=== PATIENT | female | born 1970 | race Two or more races ===

== ENCOUNTER → 2017-07-23 | Outpatient (CLI) | payer MEDICAID | LOC: FIMAGING 09:55 | PROVIDERS: ATTEND Physician Assistant | DX: R16.0 Hepatomegaly, not elsewhere classified (principal); K76.0 Fatty (change of) liver, not elsewhere classified; K76.89 Other specified diseases of liver ==

== ENCOUNTER → 2017-08-14 | Outpatient (CLI) | payer MEDICAID ==
[~2017-08-14] MED LIST: IOPAMIDOL (ISOVUE-300) 100 ML BTL ONE
== END ==
LOC: FIMAGING 15:56
PROVIDERS: ATTEND Physician Assistant
DX: K76.9 Liver disease, unspecified (principal); R94.5 Abnormal results of liver function studies
CPT/HCPCS: Q9967

== ENCOUNTER 2018-01-21 10:54 | Day surgery (SDC) | payer MEDICAID ==
[2018-01-21] MEDS ORDERED: LR 1,000 ML IV ONE (11:13)
[2018-01-21] MEDS ORDERED: LIDOCAINE 1% 2 ML INJ ID PRN (11:13)
--- NOTE | 2018-01-21 12:12 | PDGENHP ---
History & Physical Chief Complaint: dysphagia, diarreha, brbpr History of Present Illness: gerd and dysphagia. IBS diarrhea Pertinent Past, Social, Family History: tobacco -= none. alcohol = none. FHx = sister with cervical cacner. PMH = htn Relevant Physical Exam: a+ox3. CTA. S1S2, RRR. +BS, soft nt Cardiorespiratory Assessment: class 2
--- NOTE | 2018-01-21 12:12 | PDPROPOC ---
Sedation Plan of Care Sedation Plan of Care: vital signs stable, mental status noted, patient educated of risks, benefits, alternatives, patient can tolerate sedation ASA Classification: ASA 2 Planned drugs: fentanyl, midazolam Mallampati Score: Class 2 Mallampati Reference Image: Patient passed 3-3-2 rule?: Yes
[2018-01-21] MEDS ORDERED: MIDAZOLAM 2 MG/2 ML VIAL ONE ×2 (12:19→12:43)
[2018-01-21] MEDS ORDERED: fentaNYL 100 MCG/2 ML INJ ONE (12:20)
--- NOTE | 2018-01-21 13:12 | GIREPORT ---
[facility] Surgical Services - Endoscopy Department Patient Name: Fiona Blue Procedure Date: 01/21/2018 12:16 PM Patient Type: Outpatient Attending MD/ ER Physician: Rubens Romero MD Procedure: Upper GI endoscopy Indications: Dysphagia, Globus sensation Providers: Rubens Romero MD Referring MD: Mandeep Ann MD Medicines: Fentanyl 100 micrograms IV, Midazolam 5 mg IV Complications: No immediate complications. Estimated blood loss: Minimal. Description of Procedure: After obtaining informed consent, the endoscope was passed under direct vision. Throughout the procedure, the patient's blood pressure, pulse, and oxygen saturations were monitored continuously. The Endoscope was intro duced through the mouth, and advanced to the third part of duodenum. The uppe r GI endoscopy was accomplished without difficulty. The patient tolerated th e procedure well. Findings: The upper third of the esophagus was normal. Biopsies were obtained fro m the proximal and distal esophagus with cold forceps for histology of suspec demetris eosinophilic esophagitis. LA Grade B (one or more mucosal breaks greater than 5 mm, not extending between the tops of two mucosal folds) esophagitis with no bleeding was found in the lower third of the esophagus. Biopsies were taken with a c old forceps for histology. Estimated blood loss was minimal. A small hiatal hernia was present. Moderate inflammation characterized by congestion (edema), erosions and erythema was found in the gastric antrum. Biopsies were taken with a co ld forceps for histology. Estimated blood loss was minimal. The examined duodenum was normal. Biopsies for histology were taken wit h a cold forceps for evaluation of celiac disease. Estimated blood loss was minimal. The exam was otherwise without abnormality. Estimated Blood Loss: Estimated blood loss was minimal. Post Op Diagnosis: - Normal upper third of esophagus. Biopsied. - LA Grade B reflux esophagitis. Biopsied. - Small hiatal hernia. - Gastritis. Biopsied. - Normal examined duodenum. Biopsied. - The examination was otherwise normal. Recommendation: - Await pathology results. - My office will call with the pathology result with 5-7 days. If you h ave not heard from my office by 01-30, do not assume the pathology is deysi l, please call [phone] to get the pathology results. - Follow an antireflux regimen. - Use Protonix (pantoprazole or equivalent PPI) 40 mg PO daily. Take 30-60minutes before breakfast - Use Zantac (ranitidine) 300 mg PO at bedtime. - Perform a colonoscopy today. - Return to GI clinic in 5 weeks. - Return to primary care physician as previously scheduled. - Thank you for allowing me to help in your patient's care. Do not hesi frances to call with any questions. Attending Participation: I personally performed the entire procedure. Heather Cintron M.D Rubens Romero MD 01/21/2018 1:12:21 PM This report has been signed electronicallyMatthew MD Heather Number of Addenda: 0 Note Initiated On: 01/21/2018 12:16 PM [email or web address]
--- NOTE | 2018-01-21 13:12 | GIREPORT ---
[facility], [facility] Surgical Services - Endoscopy Department Patient Name: Fiona Blue Procedure Date: 01/21/2018 12:41 PM Patient Type: Outpatient Attending MD/ ER Physician: Rubens Romero MD Procedure: Colonoscopy Indications: Clinically significant diarrhea of unexplained origin, Hematochezia Providers: Rubens Romero MD Referring MD: Mandeep Ann MD Medicines: Fentanyl 125 micrograms IV, Midazolam 8 mg IV, (medications documented represent total dosages for multiple procedures) Complications: No immediate complications. Estimated blood loss: Minimal. Description of Procedure: After obtaining informed consent, the scope was passed under direct vis ion. Throughout the procedure, the patient's blood pressure, pulse, and oxyg en saturations were monitored continuously. The Colonoscope with irrigatio n channel was introduced through the anus and advanced to the terminal il eum, with identification of the appendiceal orifice and IC valve. The colono scopy was performed without difficulty. The patient tolerated the procedure w ell. The quality of the bowel preparation was good. Findings: The digital rectal exam findings include hemorrhoids. The terminal ileum contained a few localized non-bleeding erosions. Bio psies were taken with a cold forceps for histology. Estimated blood loss was minimal. The colon (entire examined portion) appeared normal. Biopsies for histo logy were taken with a cold forceps from the cecum, ascending colon, transve rse colon, descending colon and sigmoid colon for evaluation of microscopic colitis. Estimated blood loss was minimal. Internal hemorrhoids were found during retroflexion. The exam was otherwise without abnormality. Estimated Blood Loss: Estimated blood loss was minimal. Post Op Diagnosis: - Hemorrhoids found on digital rectal exam. - A few erosions in the terminal ileum. Biopsied. - The entire examined colon is normal. Biopsied. - Internal hemorrhoids. - The examination was otherwise normal. Recommendation: - Await pathology results. - My office will call with the pathology result with 5-7 days. If you h ave not heard from my office by 14, do not assume the pathology is deysi l, please call [phone] to get the pathology results. - If pathology reveals microscopic colitis, treat with budesonide 9mg p er day for 8 weeks, then 6 mg per day for one week, then 3 mg per day for one week, then stop. - Repeat colonoscopy in 10 years for screening purposes. - Patient has a contact number available for emergencies. The signs and symptoms of potential delayed complications were discussed with the pat ient. Return to normal activities tomorrow. Written discharge instructions we re provided to the patient. - Continue present medications. - Return to GI clinic in 5 weeks. - Return to primary care physician as previously scheduled. - Thank you for allowing me to help in your patient's care. Do not hesi frances to call with any questions. - See EGD for other recommendations Attending Participation: I personally performed the entire procedure. Heather Cintron M.D Rubens Romero MD 01/21/2018 1:11:39 PM This report has been signed electronicallyMattrandyw MD Heather Number of Addenda: 0 Note Initiated On: 01/21/2018 12:41 PM Total Procedure Duration Time 0 hours 18 minutes 26 seconds [email or web address]
[2018-01-21] MEDS ORDERED: IBUPROFEN 200 MG TAB PO ONE ×2 (13:49→14:15)
[2018-01-21 14:28] VITALS: BP 134/77
== END 2018-01-21 14:34 | disposition home or self-care (01) ==
LOC: FSGY 10:54
PROVIDERS: ATTEND Internal Medicine Gastroenterology
DX: R13.10 Dysphagia, unspecified (principal); K92.1 Melena; K20.9 Esophagitis, unspecified; K29.70 Gastritis, unspecified, without bleeding; R19.7 Diarrhea, unspecified; K64.8 Other hemorrhoids; K21.9 Gastro-esophageal reflux disease without esophagitis; K44.9 Diaphragmatic hernia without obstruction or gangrene; Z80.49 Family history of malignant neoplasm of other genital organs
CPT/HCPCS: J2250; J3010

== ENCOUNTER → 2018-02-11 | Outpatient (CLI) | payer MEDICAID | LOC: FIMAGING 08:03 | PROVIDERS: ATTEND Physician Assistant | DX: R10.11 Right upper quadrant pain (principal) | CPT/HCPCS: 78227; A9537 ==

== ENCOUNTER → 2018-04-02 | Outpatient (CLI) | payer MEDICAID ==
[~2018-04-02] MED LIST changes: +IOHEXOL 300 mgI/ML (OMNIPAQUE) 150 ML BTL IV ONE; -IOPAMIDOL (ISOVUE-300) 100 ML BTL ONE
== END ==
LOC: FIMAGING 14:21
PROVIDERS: ATTEND Physician Assistant
DX: K76.0 Fatty (change of) liver, not elsewhere classified (principal); D18.03 Hemangioma of intra-abdominal structures
CPT/HCPCS: Q9967